=== PATIENT | female | born 1930 | race Two or more races ===

== ENCOUNTER 2017-01-19 21:08 | Emergency (ER) | payer OTHER, MEDICAID ==
[~2017-01-19] VITALS: Ht 160 cm; Wt 68.9 kg
[~2017-01-19 21:08] MED LIST: AMIT25TA9; ASPI81CH43 PO; FURO40TA4; GLIM1TAB2; NITR0.4S31; OMEP20TA37 PO; RAMI10CA38; ROSU5TAB5 PO; SERT-274; TOPI25TA84; TRIAPOW43
[2017-01-19 22:13] LABS: Basophils # (auto) 0 uL; Basophils % (auto) 0.4 % (0.0-2.0); Eosinophils # (auto) 0.1 uL; Eosinophils % (auto) 1.9 % (0.0-7.0); Hematocrit 33.5 % (36.0-46.0); Hemoglobin 11.5 g/dL (12.2-16.2); Lymphocytes # (auto) 1.7 uL; Lymphocytes % (auto) 28.1 % (10.0-50.0); Mean Corpuscular Hemoglobin 32.1 pg (28.0-32.0); Mean Corpuscular Hgb Conc. 34.4 g/dL (32.0-36.0); Mean Corpuscular Volume 93.3 fL (80.0-100.0); Mean Platelet Volume 8.7 fL (7.4-10.4); Monocytes # (auto) 0.3 uL; Monocytes % (auto) 4.8 % (0.0-12.0); Neutrophils # (auto) 3.9 uL; Neutrophils % (auto) 64.8 % (37.0-80.0); Platelet Count (auto) 165 10^3/uL (140-450); Red Cell Distribution Width 13.5 % (11.6-16.0)
[2017-01-19 22:37] LABS: Albumin 3.5 g/dL (3.4-5.0); Alkaline Phosphatase 98 U/L (45-117); Anion Gap 8 (5-15); Aspartate Aminotransferase 14 U/L (15-37); BUN/Creatinine Ratio 27.8; Bilirubin, Total 0.3 mg/dL (0.2-1.0); Blood Urea Nitrogen 25 mg/dL (7-18); Calcium 8.9 mg/dL (8.5-10.1); Carbon Dioxide 27 mmol/L (21-32); Chloride 109 mmol/L (98-107); GFR African American 76 mL/min; GFR Non-African American 63 mL/min; Glucose 132 mg/dL (74-106); Sodium 144 mmol/L (136-145)
[2017-01-20] MEDS ORDERED: HYDROcodone-ACET 5/325MG TAB PO ONE (00:45)
[2017-01-20] MEDS ORDERED: ACETAMINOPHEN 325 MG TAB PO ONE ×2 (00:45→01:00)
[2017-01-20 04:59] VITALS: BP 159/77
== END 2017-01-20 05:00 | disposition home or self-care (01) ==
LOC: EDBD 21:08 → ER 21:15
DX: S00.03XA Contusion of scalp, initial encounter (principal); S09.90XA Unspecified injury of head, initial encounter; I25.10 Atherosclerotic heart disease of native coronary artery without angina pectoris; Z86.73 Personal history of transient ischemic attack (TIA), and cerebral infarction without residual deficits; I10 Essential (primary) hypertension; E78.5 Hyperlipidemia, unspecified; E11.9 Type 2 diabetes mellitus without complications; K21.9 Gastro-esophageal reflux disease without esophagitis; Z79.82 Long term (current) use of aspirin; Z79.899 Other long term (current) drug therapy; Z88.6 Allergy status to analgesic agent; W19.XXXA Unspecified fall, initial encounter; Y93.89 Activity, other specified; Y99.8 Other external cause status; Y92.89 Other specified places as the place of occurrence of the external cause
CPT/HCPCS: 36415; 70450; 72125; 80053; 84484; 85025; 93005; 99285; J7030

== ENCOUNTER 2017-12-31 13:51 | Inpatient (IN) | payer OTHER, MEDICAID ==
[~2017-12-31] VITALS: Ht 160 cm; Wt 73.7 kg
[2017-12-31 14:41] LABS: Basophils # (auto) 0 uL; Basophils % (auto) 0.6 % (0.0-2.0); Eosinophils # (auto) 0.1 uL; Eosinophils % (auto) 1.4 % (0.0-7.0); Hematocrit 36.4 % (36.0-46.0); Hemoglobin 12.3 g/dL (12.2-16.2); Lymphocytes # (auto) 2.1 uL; Lymphocytes % (auto) 32.8 % (10.0-50.0); Mean Corpuscular Hemoglobin 32.5 pg (28.0-32.0); Mean Corpuscular Hgb Conc. 33.9 g/dL (32.0-36.0); Mean Corpuscular Volume 95.8 fL (80.0-100.0); Monocytes # (auto) 0.4 uL; Neutrophils # (auto) 3.7 uL; Neutrophils % (auto) 59.2 % (37.0-80.0); Nucleated Red Blood Cells % 0.1 %; Platelet Count (auto) 168 10^3/uL (140-450); Red Cell Distribution Width 13.5 % (11.8-14.3); White Blood Cell 6.3 10^3/uL (4.4-10.8)
[2017-12-31 15:15] LABS: Alanine Aminotransferase 22 U/L (13-56); Albumin 3.5 g/dL (3.4-5.0); Alkaline Phosphatase 90 U/L (45-117); Anion Gap 3 (5-15); Aspartate Aminotransferase 21 U/L (15-37); BUN/Creatinine Ratio 22.9; Bilirubin, Total 0.3 mg/dL (0.2-1.0); Blood Urea Nitrogen 19 mg/dL (7-18); Calcium 9.5 mg/dL (8.5-10.1); Carbon Dioxide 25 mmol/L (21-32); Chloride 112 mmol/L (98-107); GFR African American 83 mL/min; GFR Non-African American 69 mL/min; Glucose 97 mg/dL (74-106); Potassium 3.9 mmol/L (3.5-5.1); Sodium 140 mmol/L (136-145)
[2017-12-31] MEDS ORDERED: ACETAMINOPHEN 325 MG TAB PO ONE (19:45)
[2017-12-31] MEDS ORDERED: ACETAMINOPHEN 650 mg PER 20 mL UD ONE (19:48)
[2017-12-31] MEDS ORDERED: MORPHINE SULFATE 4 MG/ML SYR/VIAL IV ONE (20:45)
[2017-12-31] MEDS ORDERED: ONDANSETRON HCL 4 MG/2 ML VIAL IV ONE (20:45)
[2017-12-31] MEDS ORDERED: ACETAMINOPHEN 325 MG TAB PO PRN (22:30)
[2017-12-31] MEDS ORDERED: DOCUSATE SOD 100 MG CAP PO PRN (22:30)
[2017-12-31] MEDS ORDERED: ONDANSETRON HCL 4 MG/2 ML VIAL IV PRN (22:30)
[2017-12-31] MEDS ORDERED: MORPHINE SULFATE 4 MG/ML SYR/VIAL IV PRN ×2 (22:30)
[2017-12-31] MEDS ORDERED: NITROGLYCERIN 0.4 MG SL TAB SL PRN (22:30)
[2017-12-31] MEDS ORDERED: TEMAZEPAM 15 MG CAP PO PRN (22:30)
[2018-01-01] VITALS (7 sets, daily range): BP systolic 100–141; BP diastolic 55–67
[2018-01-01 05:21] LABS: Basophils # (auto) 0 uL; Basophils % (auto) 0.7 % (0.0-2.0); Eosinophils # (auto) 0.1 uL; Eosinophils % (auto) 2.8 % (0.0-7.0); Hematocrit 35.5 % (36.0-46.0); Hemoglobin 12.2 g/dL (12.2-16.2); Lymphocytes % (auto) 41.9 % (10.0-50.0); Mean Corpuscular Hemoglobin 32.4 pg (28.0-32.0); Mean Corpuscular Hgb Conc. 34.4 g/dL (32.0-36.0); Mean Corpuscular Volume 94.2 fL (80.0-100.0); Monocytes # (auto) 0.3 uL; Monocytes % (auto) 6.4 % (0.0-12.0); Neutrophils # (auto) 2.3 uL; Neutrophils % (auto) 48.2 % (37.0-80.0); Platelet Count (auto) 156 10^3/uL (140-450); Red Blood Cells 3.77 10^6/uL (4.0-5.20); Red Cell Distribution Width 13.7 % (11.8-14.3); White Blood Cell 4.8 10^3/uL (4.4-10.8)
[2018-01-01 05:41] LABS: Albumin 3.5 g/dL (3.4-5.0); BUN/Creatinine Ratio 23.6; Calcium 9.5 mg/dL (8.5-10.1)
[2018-01-01 05:44] LABS: Bilirubin, Total 0.5 mg/dL (0.2-1.0)
[2018-01-01] MEDS ORDERED: ASPirin 81 mg TAB PO SCH (10:00)
[2018-01-01] MEDS ORDERED: ENOXAPARIN SOD 40 MG/0.4 ML SYRINGE SC SCH (10:00)
[2018-01-01] MEDS ORDERED: FAMOTIDINE 20 MG TAB PO SCH (10:00)
[2018-01-01] MEDS ORDERED: RAMIPRIL 10 MG CAP PO SCH (10:00)
[2018-01-01] MEDS ORDERED: FUROSEMIDE 40 MG TAB PO SCH (10:00)
[2018-01-01] MEDS ORDERED: TOPIRAMATE 25 MG TAB PO SCH (10:00)
[2018-01-01] MEDS ORDERED: SERTRALINE HCL 50 MG TAB PO SCH (10:00)
[2018-01-01] MEDS ORDERED: IBUPROFEN 400 MG TAB PO PRN (16:00)
[2018-01-01] MEDS ORDERED: AMITRIPTYLINE HCL 25 MG TAB PO SCH (22:00)
== END 2018-01-01 17:36 | disposition home or self-care (01) | DRG 103 ==
LOC: ER 13:51 → EDBD 13:51 → TELE-WESTW 13:52
PROVIDERS: ADMIT Nurse Practitioner; ATTEND Internal Medicine Geriatric Medicine
DX: R51 Headache (principal); I69.351 Hemiplegia and hemiparesis following cerebral infarction affecting right dominant side; M62.838 Other muscle spasm; E78.5 Hyperlipidemia, unspecified; F41.9 Anxiety disorder, unspecified; I10 Essential (primary) hypertension; I25.10 Atherosclerotic heart disease of native coronary artery without angina pectoris; G47.00 Insomnia, unspecified; K59.00 Constipation, unspecified; F32.9 Major depressive disorder, single episode, unspecified; Z90.49 Acquired absence of other specified parts of digestive tract; Z82.49 Family history of ischemic heart disease and other diseases of the circulatory system; Z98.61 Coronary angioplasty status; Z79.82 Long term (current) use of aspirin; Z79.899 Other long term (current) drug therapy
CPT/HCPCS: 36415; 70450; 71045; 80053; 84484; 85025; 96374; 96375; J2405

== ENCOUNTER 2019-09-16 13:05 | Inpatient (IN) | payer OTHER, MEDICAID ==
[~2019-09-16] VITALS: Ht 160 cm; Wt 71.8 kg
[2019-09-16] MEDS ORDERED: ACETAMINOPHEN 325 MG TAB PO ONE (16:45)
[2019-09-16 17:49] LABS: Basophils # (auto) 0 uL; Basophils % (auto) 0.5 % (0.0-2.0); Eosinophils # (auto) 0.1 uL; Eosinophils % (auto) 1.7 % (0.0-7.0); Hematocrit 36.9 % (36.0-46.0); Hemoglobin 12.7 g/dL (12.2-16.2); Lymphocytes # (auto) 1.5 uL; Mean Corpuscular Hgb Conc. 34.6 g/dL (32.0-36.0); Mean Corpuscular Volume 95.4 fL (80.0-100.0); Monocytes # (auto) 0.3 uL; Monocytes % (auto) 5.7 % (0.0-12.0); Neutrophils # (auto) 4.1 uL; Neutrophils % (auto) 68.1 % (37.0-80.0); Platelet Count (auto) 157 10^3/uL (140-450); Red Blood Cells 3.86 10^6/uL (4.0-5.20); Red Cell Distribution Width 13.4 % (11.8-14.3); White Blood Cell 6.1 10^3/uL (4.4-10.8)
[2019-09-16 18:02] LABS: Albumin 3.4 g/dL (3.4-5.0); Anion Gap 7 (5-15); Blood Urea Nitrogen 22 mg/dL (7-18); Calcium 9.2 mg/dL (8.5-10.1); Carbon Dioxide 27 mmol/L (21-32); Chloride 108 mmol/L (98-107); Glucose 108 mg/dL (74-106); Potassium 3.8 mmol/L (3.5-5.1); Sodium 142 mmol/L (136-145)
[2019-09-16 18:08] LABS: Alanine Aminotransferase 16 U/L (13-56); Alkaline Phosphatase 107 U/L (45-117); Aspartate Aminotransferase 18 U/L (15-37); BUN/Creatinine Ratio 26.2; Bilirubin, Total 0.3 mg/dL (0.2-1.0); GFR African American 82 mL/min; GFR Non-African American 68 mL/min; Total Protein 7.1 g/dL (6.4-8.2)
[2019-09-16] MEDS ORDERED: LACTULOSE 20Gm/30ML SOLN PO PRN (20:00)
[2019-09-16] MEDS ORDERED: ACETAMINOPHEN 500 MG TAB PO PRN (20:00)
[2019-09-16] MEDS ORDERED: LABETALOL HCL 5 MG/ML ML 20ML VIAL IV PRN (20:00)
[2019-09-16] MEDS ORDERED: MORPHINE SULF INJ 2 MG/ML SYRINGE 1ML IV PRN (20:00)
[2019-09-16] MEDS ORDERED: ONDANSETRON HCL 4 MG/2 ML VIAL IV PRN (20:00)
[2019-09-16] MEDS ORDERED: ZOLPIDEM TARTRATE 5 MG TAB PO PRN (20:00)
[2019-09-16] MEDS ORDERED: LORazepam 0.5 MG TAB PO PRN (20:00)
[2019-09-16] MEDS ORDERED: NITROGLYCERIN 0.4 MG SL TAB SL PRN (20:00)
[2019-09-16 20:21] LABS: Urine Bacteria FEW /hpf (None Seen); Urine Blood 1+ /uL (Negative); Urine Specific Gravity 1.014 (1.001-1.035); Urine WBC 35 /hpf (0 - 5)
[2019-09-16 20:48] LABS: Folate (Folic Acid) 22.7 ng/mL (5.38-24)
--- NOTE | 2019-09-16 23:30 | NUR ---
Telemetry admit from ER STACY CAMPBELL admitted to Telemetry unit. Patient oriented to Funmilayo Spears, primary RN, unit, room, bed, and unit policies regarding patient care and visiting hours. Patient now on continuous telemetry monitoring, tele box #9. Patient weighed by bedscale and encouraged to call if they need something. All questions and concerns addressed, patient verbalized understanding.Patient arrived to unit with no IV acess and states that she brought her home medications to ER with her, however patient did not come up with home medications. ER was called to locate medications, they said they will look around and send them up when they find them.
[2019-09-16 23:46] VITALS: BP 167/70
[2019-09-17] VITALS (7 sets, daily range): BP systolic 147–167; BP diastolic 70–92
--- NOTE | 2019-09-17 00:30 | NUR ---
IV insertion IV access obtained, via clean sterile technique by inserting 22 gauge catheter at left AC after 1 attempt(s). IV secured properly. No trauma to site. Patient tolerated well.
[2019-09-17] MEDS: SODIUM CHLORIDE 0.9% 1,000 ML IV SCH ×3 (06:36→20:57)
--- NOTE | 2019-09-17 07:30 | NUR ---
Opening Shift Note Assumed care of patient, awake and alert. No S/S of distress/SOB. Patient is not reporting pain, just soreness to right side of body. Instructed on POC and to call for assist PRN, will continue to monitor for changes Q1hr and PRN. Bed is in the lowest position with 2x side rails up for safety and call light is within reach.
[2019-09-17] MEDS: traMADol HCL 50 MG TAB PO PRN ×2 (09:27→19:42)
[2019-09-17] MEDS ORDERED: PANTOPRAZOLE 40 MG TAB PO SCH (10:00)
[2019-09-17] MEDS ORDERED: ENOXAPARIN SOD 40 MG/0.4 ML SYRINGE SC SCH (10:00)
[2019-09-17] MEDS ORDERED: ASPirin 81 mg TAB PO SCH (10:00)
--- NOTE | 2019-09-17 16:30 | NUR ---
Dr. Quinteros at bedside. Orders received. Patient will be transferred to [facility] once bed is available.
--- NOTE | 2019-09-17 16:50 | NUR ---
Received a call from N[facility] of case management from [facility], they are still working on the bed availability at [facility]. Instructions received to set up transport with [facility] on will call, authorization # [id number].
--- NOTE | 2019-09-17 17:00 | NUR ---
Transport on will call already been set up with [facility], spoke with Marisa # awaiting availability of the bed at [facility].
--- NOTE | 2019-09-17 18:30 | NUR ---
Patient's daughter Janet made aware of the transfer to [facility] and agreed with it.
--- NOTE | 2019-09-17 18:53 | NUR ---
Transport set up for [facility] going to [facility] at 0800.
--- NOTE | 2019-09-17 19:40 | NUR ---
Opening Shift Note Assumed care of patient, awake and alert. No S/S of distress/SOB. Patient reporting pain 9/10, ultram given, soreness to right side of body. Instructed on POC and to call for assist PRN, will continue to monitor for changes Q1hr and PRN. Bed is in the lowest position with 2x side rails up for safety and call light is within reach.
--- NOTE | 2019-09-17 19:50 | NUR ---
Reports given to Baldev COSTA at [facility]. Addendum: 09/17/19 at 1958 by Olegario Valdez RN Patient will be admitted to Telemetry at [facility].
--- NOTE | 2019-09-17 19:56 | NUR ---
MICHA CALLED EST TIME 9;30-10PM FOR TRANSFER TO [facility]
--- NOTE | 2019-09-17 22:18 | NUR ---
[facility] CALLED TRANSFER DELAY UNTIL 11:45PM. CALLED AND NOTIFIED MICHAEL. COSTA AT [facility]
--- NOTE | 2019-09-18 00:05 | NUR ---
Pt being trans to another hosp Order obtained for transfer of STACY CAMPBELL to [facility]. Report called/given to IGOR NOVOA. Report given to EMS transport team. Medication reconciliation form completed and copy given to patient. Transported via [facility] along with copied chart and imaging films/disk and all personal belongings. No distress noted on time of departure. Family notified of destination and room number, verbalized understanding.
--- NOTE | 2019-09-20 16:43 | NUR ---
Received no call or page for SS consult to transfer to [facility].
== END 2019-09-18 00:05 | disposition short-term general hospital (02) | DRG 552 ==
LOC: ER 13:05 → EDBD 13:05 → EDSEX 13:05 → TELE 13:06 → TELE-EAST 23:23
PROVIDERS: ADMIT Internal Medicine; ATTEND Internal Medicine
DX: S32.10XA Unspecified fracture of sacrum, initial encounter for closed fracture (principal); I69.351 Hemiplegia and hemiparesis following cerebral infarction affecting right dominant side; F32.9 Major depressive disorder, single episode, unspecified; I25.10 Atherosclerotic heart disease of native coronary artery without angina pectoris; G62.9 Polyneuropathy, unspecified; I10 Essential (primary) hypertension; W18.39XA Other fall on same level, initial encounter; Y93.01 Activity, walking, marching and hiking; F41.9 Anxiety disorder, unspecified; M48.061 Spinal stenosis, lumbar region without neurogenic claudication; I67.2 Cerebral atherosclerosis; M48.02 Spinal stenosis, cervical region; M47.892 Other spondylosis, cervical region; Y92.89 Other specified places as the place of occurrence of the external cause; Y99.8 Other external cause status; Z88.5 Allergy status to narcotic agent; Z90.49 Acquired absence of other specified parts of digestive tract; Z95.5 Presence of coronary angioplasty implant and graft; Z82.49 Family history of ischemic heart disease and other diseases of the circulatory system; Z79.899 Other long term (current) drug therapy
CPT/HCPCS: 36415; 70450; 71250; 72125; 72131; 72192; 73590; 80053; 81001; 82550; 82746; 84484; 85025; 93005; G0378